=== PATIENT | male | born 1960 | race Caucasian/White ===

== ENCOUNTER 2023-07-27 19:48 | Inpatient (IN) | payer MEDICARE, SELFPAY ==
[2023-07-27] VITALS (9 sets, daily range): BP systolic 158–196; BP diastolic 80–111; BMI 30.4; BMI 28.9
[2023-07-27 17:48] LABS: % Basophils 0.5 % (0-2); % Eosinophils 3.7 % (0-6); % Immature Granulocytes 0.4 % (0-0.5); % Lymphocytes 16.1 % (20.5-51.1); % Monocytes 8.1 % (1.7-9.3); % Neutrophils 71.2 % (42.2-75.2); Absolute Basophils 0.1 10^3/uL (0-0.2); Absolute Eosinophils 0.5 10^3/uL (0-0.7); Absolute Immature Granulocytes 0.1 10^3/uL (0-0.05); Absolute Lymphocytes 2.2 10^3/uL (1.2-3.4); Absolute Monocytes 1.1 10^3/uL (0.1-0.6); Absolute Neutrophils 9.6 10^3/uL (1.4-6.5); Hematocrit 38.8 % (39.0-52.0); Mean Corp Hgb Conc. 33.5 g/dL (33.0-37.0); Mean Corpuscular Volume 83.6 fL (80.0-94.0); Mean Platelet Volume 10.1 fL (7.4-10.4); Nucleated Red Blood Cells % 0 % (-); Platelet Count 279 10^3/uL (130-400); Red Blood Cell Count 4.64 10^6/uL (4.70-6.10); Red Cell Dist. Width 14.3 % (11.5-14.5); White Blood Cell Count 13.5 10^3/uL (4.8-10.8)
--- NOTE | 2023-07-27 17:48 | ED.GENMED ---
History of Present Illness
<Maria M Mclaughlin PA-C - Last Filed: 08/01/23 21:45>
General
Chief Complaint: Breathing Problem
Source: patient
Exam Limitations: none
Time Seen by Provider: 07/27/23 17:51
Nursing documentation reviewed up to this point in time: agreed with
Travel History
Have you had any contact with someone who has COVID-19?: No
Do you have any symptoms of coronavirus? Fever > 100 degrees, chills, cough, shortness of breath, sore throat, loss of taste or smell, muscle aches, or headache?: No
History of Present Illness
History of Present Illness:
63 y/o M with h/o HTN
h/o provoked DVT remotely
says a few days of mild sob and maybe some wheezing
and then got much worse today, feels winded, trouble catching breath
injured his left anteiror lower leg last week and had a laceration and hematoma and now the calf is entirely swollen and bruised
he feels that the bruise is draining down the leg
he has some chest tightness and is a little pain with breathing but mostly just tight and sob, exertional dyspnea, fatigue
no fever, chills, cough, col dysmptoms
nonsmoker
no h/o copd
Past History
<Maria M Mclaughlin PA-C - Last Filed: 08/01/23 21:45>
Past History
ED Past Medical History: HTN
Social History
Tobacco: Non-smoker
Personal:
Review of Systems
<Maria M Mclaughlin PA-C - Last Filed: 08/01/23 21:45>
Review of Systems
Allergies reviewed?: Yes
All Other Systems: Not applicable
Phy Exam
<Maria M Mclaughlin PA-C - Last Filed: 08/01/23 21:45>
Physical Exam
Physical Exam:
GENERAL: Alert ,tachypneic
EYE: pupils equal and reactive
NECK: Supple
ENT: o/p clr, mmm.
CARDIAC: Regular rate and rhythm .
LUNGS: diminished crackles b/l bases, mild tachypnea on o2, no cough
ABDOMEN: Soft, without focal tenderness, no r/g, no cvat, normal bowel sounds
NEUROLOGICAL: Alert and oriented, no focal neuro deficits
SKIN: Warm and dry, skin intact.
MUSCULOSKELETAL: right lower edema ecchymosis, pitting left lower leg; anterior lower leg laceration closed 3 cm proximal anterior tibial region
calf slightly tender
swollen
PSYCH: Normal and appropriate interaction.
Scores
<Maria M Mclaughlin PA-C - Last Filed: 08/01/23 21:45>
Heart Failure Risk
Heart Failure Risk Score: Yes
History of Stroke or TIA: No
History of intubation for respiratory distress: No
Heart rate on ED arrival >/= 110: Yes
SaO2 <90% on arrival on room air: No
HR >/=110 during 3min walk test (or too ill to perform test): Yes
ECG has acute ischemic changes: No
Urea >/=12mmol/L (BUN 33.6mg/dL): No
Serum CO2>/=35mmol/L: No
Troponin I or T elevated to [place] Level (0.4mg/dL): No
NT-proBNP >/=5,000ng/L (5,000pg/ml): No
HF Risk Score: 2
Admission Status: MEDIUM RISK 9.2% Consider observation or discharge to home with homecare & f/u visit to PCP/It Network Administrator, or SNF for treatment
Course
<Maria M Mclaughlin PA-C - Last Filed: 08/01/23 21:45>
Orders/Labs/Results
Orders:
Orders
07/27/23 Breakfast
Cholesterol Lowering
At Your Request: Full Participation
Cholesterol Lowering: Sodium, 2 Gram
07/27/23 17:34
Electrocardiogram (*1) Urgent
Reason for Study: Shortness of Breath
07/27/23 17:35
EKG- Treatment ONCE
Complete Blood Count/With Diff Urgent
Comprehensive Metabolic Panel Urgent
NT-proBNP Urgent
Comment: ADD ON
Troponin I Urgent
07/27/23 17:43
Chest X-ray Portable [CR Chest Portable - 1 View] Stat
Comment:
Reason For Exam: sob
Reason Study Needs to be Portable: Unable to Transport
07/27/23 17:45
Add On- LAB Urgent
Tests Added?: BNP
07/27/23 17:54
Furosemide [Lasix] 40 mg IV NOW STA
07/27/23 17:56
COVID-19 Antigen Urgent
Source: Nasal Swab
Blood Culture Q30M
ROSE Source: Blood/Venous
Specimen Description:
Blood Culture Q30M
ROSE Source: Blood/Venous
Specimen Description:
Influenza A+B Rapid Molecular Urgent
ROSE Source: Nasal Swab
Specimen Description:
07/27/23 18:52
HydrALAZINE [Apresoline] 5 mg IV NOW STA
07/27/23 18:54
Add On- LAB Urgent
Tests Added?: procalcitonin
07/27/23 19:06
Procalcitonin Urgent
07/27/23 19:16
Admit/Transfer Patient As Directed
Co-Sign Provider:
Level of Care: Inpatient admission
Assign to:: Telemetry
Physician / Group: htay
Diagnosis: PNA vs acute HF / HFpEF, uncontrolled HTN
Reason for Telemetry: Subacute Heart Failure
Date to Stop Telemetry: 07/29/23
Time to Stop Telemetry: 11:00
Reason for Hospitalization: Acute dyspnea with progression
Asso. acute hypoxic RF
PNA vs acute HF / HFpEF, uncontrolled HTN
Expected length of stay greater than two midnights?: Yes
ELOS- Estimated Length of Stay in days: 3
I certify the patient meets the requirements for IP care: Yes
07/27/23 19:18
Code Status As Directed
Resuscitation Status: Full Code
07/27/23 19:19
Furosemide [Lasix] 40 mg IV NOW STA
07/27/23 19:27
US Periph Venous LOWER Ext LT Urgent
Comment:
Reason For Exam: swelling
07/27/23 20:42
CARDIOLOGY CONSULT Routine
Consulting Provider: Lasha Cai
Was physician already notified: Yes
Reason for consult: acute HF/ chr HFpEF vs PNA
HF DIETARY CONSULT Routine
HF EDUCATOR CONSULT Routine
Comment:
Activity As Directed
Activity Level: With Assistance
Intake/ Output As Directed
Frequency: Per unit guidelines
Patient Education As Directed
Type: CHF folder
Comment: give on admission. Document in Interdisciplinary Education record
Sleep Apnea Assessment by RN As Directed
Comment:
Physician Instructions:
Vital Signs As Directed
Frequency: Other
Additional Instructions:: Q12 or per unit guidelines if more frequent.
Weight As Directed
Frequency: Daily
Type of Scale: Standing Scale
Comment: Daily morning weight. If unable to stand, use balanced bed scale.
Weight As Directed
Frequency: Once
Type of Scale: Standing Scale
Comment: Upon Admission. If unable to stand, use balanced bed scale.
Pulse Ox/cont/shift [RESP] Routine
Quantity: 1
Special Instructions: Daily pulse oximetry at rest. If greater than 92% at rest also obtain pulse oximetry
while ambulating as tolerated.
DX Deep Vein Thrombosis Video Routine
07/27/23 21:33
Troponin I Q6H
Comment: at admission & every 6 hours x 2 (3 total), ECG to be done with each level
07/28/23 02:51
Cardiovascular Evaluation IN AM
Complete Blood Count/With Diff IN AM
Troponin I Q6H
Comment: at admission & every 6 hours x 2 (3 total), ECG to be done with each level
07/28/23 08:00
Amlodipine [Norvasc] 10 mg PO DAILY
Escitalopram Oxalate [Lexapro] 20 mg PO DAILY
Furosemide [Lasix] 40 mg IV DAILY
Multivitamin [Theragran] 1 tablet PO DAILY
07/28/23 08:51
Troponin I Q6H
Comment: at admission & every 6 hours x 2 (3 total), ECG to be done with each level
07/28/23 18:00
Enoxaparin Sodium [Lovenox] 40 mg SC QPM
07/29/23 05:38
Basic Metabolic Panel IN AM
07/29/23 11:00
DC Protocol for Telemetry ONCE
07/30/23 05:25
Basic Metabolic Panel IN AM
Abnormal Lab Results
07/27/23
17:35
WBC 13.5 H 10^3/uL
(4.8-10.8)
RBC 4.64 L 10^6/uL
(4.70-6.10)
Hct 38.8 L %
(39.0-52.0)
Abs Immat Gran (auto) 0.1 H 10^3/uL
(0-0.05)
Absolute Neuts (auto) 9.6 H 10^3/uL
(1.4-6.5)
Absolute Monos (auto) 1.1 H 10^3/uL
(0.1-0.6)
Lymphocytes % 16.1 L %
(20.5-51.1)
07/27/23 17:35
07/27/23 17:35
Vital Signs
Initial and Last Documented VS:
Initial Vital Signs
Temp Pulse Resp BP Pulse Ox
98.2 F 83 31 178/106 88
07/27/23 17:34 07/27/23 17:34 07/27/23 17:34 07/27/23 17:34 07/27/23 17:34
Last Documented Vital Signs
Temp Pulse Resp BP Pulse Ox
98.2 F 75 16 141/90 98
07/31/23 15:00 07/31/23 15:00 07/31/23 15:00 07/31/23 15:00 07/31/23 15:00
<Saqib Maier MD - Last Filed: 07/27/23 18:51>
Orders/Labs/Results
Orders:
Orders
07/27/23 Breakfast
Cholesterol Lowering
At Your Request: Full Participation
Cholesterol Lowering: Sodium, 2 Gram
07/27/23 17:34
Electrocardiogram (*1) Urgent
Reason for Study: Shortness of Breath
07/27/23 17:35
EKG- Treatment ONCE
Complete Blood Count/With Diff Urgent
Comprehensive Metabolic Panel Urgent
NT-proBNP Urgent
Comment: ADD ON
Troponin I Urgent
07/27/23 17:43
Chest X-ray Portable [CR Chest Portable - 1 View] Stat
Comment:
Reason For Exam: sob
Reason Study Needs to be Portable: Unable to Transport
07/27/23 17:45
Add On- LAB Urgent
Tests Added?: BNP
07/27/23 17:54
Furosemide [Lasix] 40 mg IV NOW STA
07/27/23 17:56
COVID-19 Antigen Urgent
Source: Nasal Swab
Blood Culture Q30M
ROSE Source: Blood/Venous
Specimen Description:
Blood Culture Q30M
ROSE Source: Blood/Venous
Specimen Description:
Influenza A+B Rapid Molecular Urgent
ROSE Source: Nasal Swab
Specimen Description:
07/27/23 18:52
HydrALAZINE [Apresoline] 5 mg IV NOW STA
07/27/23 18:54
Add On- LAB Urgent
Tests Added?: procalcitonin
07/27/23 19:06
Procalcitonin Urgent
07/27/23 19:16
Admit/Transfer Patient As Directed
Co-Sign Provider:
Level of Care: Inpatient admission
Assign to:: Telemetry
Physician / Group: htay
Diagnosis: PNA vs acute HF / HFpEF, uncontrolled HTN
Reason for Telemetry: Subacute Heart Failure
Date to Stop Telemetry: 07/29/23
Time to Stop Telemetry: 11:00
Reason for Hospitalization: Acute dyspnea with progression
Asso. acute hypoxic RF
PNA vs acute HF / HFpEF, uncontrolled HTN
Expected length of stay greater than two midnights?: Yes
ELOS- Estimated Length of Stay in days: 3
I certify the patient meets the requirements for IP care: Yes
07/27/23 19:18
Code Status As Directed
Resuscitation Status: Full Code
07/27/23 19:19
Furosemide [Lasix] 40 mg IV NOW STA
07/27/23 19:27
US Periph Venous LOWER Ext LT Urgent
Comment:
Reason For Exam: swelling
07/27/23 20:42
CARDIOLOGY CONSULT Routine
Consulting Provider: Lasha Cai
Was physician already notified: Yes
Reason for consult: acute HF/ chr HFpEF vs PNA
HF DIETARY CONSULT Routine
HF EDUCATOR CONSULT Routine
Comment:
Activity As Directed
Activity Level: With Assistance
Intake/ Output As Directed
Frequency: Per unit guidelines
Patient Education As Directed
Type: CHF folder
Comment: give on admission. Document in Interdisciplinary Education record
Sleep Apnea Assessment by RN As Directed
Comment:
Physician Instructions:
Vital Signs As Directed
Frequency: Other
Additional Instructions:: Q12 or per unit guidelines if more frequent.
Weight As Directed
Frequency: Daily
Type of Scale: Standing Scale
Comment: Daily morning weight. If unable to stand, use balanced bed scale.
Weight As Directed
Frequency: Once
Type of Scale: Standing Scale
Comment: Upon Admission. If unable to stand, use balanced bed scale.
Pulse Ox/cont/shift [RESP] Routine
Quantity: 1
Special Instructions: Daily pulse oximetry at rest. If greater than 92% at rest also obtain pulse oximetry
while ambulating as tolerated.
DX Deep Vein Thrombosis Video Routine
07/27/23 21:33
Troponin I Q6H
Comment: at admission & every 6 hours x 2 (3 total), ECG to be done with each level
07/28/23 02:51
Cardiovascular Evaluation IN AM
Complete Blood Count/With Diff IN AM
Troponin I Q6H
Comment: at admission & every 6 hours x 2 (3 total), ECG to be done with each level
07/28/23 08:00
Amlodipine [Norvasc] 10 mg PO DAILY
Escitalopram Oxalate [Lexapro] 20 mg PO DAILY
Furosemide [Lasix] 40 mg IV DAILY
Multivitamin [Theragran] 1 tablet PO DAILY
07/28/23 08:51
Troponin I Q6H
Comment: at admission & every 6 hours x 2 (3 total), ECG to be done with each level
07/28/23 18:00
Enoxaparin Sodium [Lovenox] 40 mg SC QPM
07/29/23 05:38
Basic Metabolic Panel IN AM
07/29/23 11:00
DC Protocol for Telemetry ONCE
07/30/23 05:25
Basic Metabolic Panel IN AM
Abnormal Lab Results
07/27/23
17:35
WBC 13.5 H 10^3/uL
(4.8-10.8)
RBC 4.64 L 10^6/uL
(4.70-6.10)
Hct 38.8 L %
(39.0-52.0)
Abs Immat Gran (auto) 0.1 H 10^3/uL
(0-0.05)
Absolute Neuts (auto) 9.6 H 10^3/uL
(1.4-6.5)
Absolute Monos (auto) 1.1 H 10^3/uL
(0.1-0.6)
Lymphocytes % 16.1 L %
(20.5-51.1)
07/27/23 17:35
07/27/23 17:35
Vital Signs
Initial and Last Documented VS:
Initial Vital Signs
Temp Pulse Resp BP Pulse Ox
98.2 F 83 31 178/106 88
07/27/23 17:34 07/27/23 17:34 07/27/23 17:34 07/27/23 17:34 07/27/23 17:34
Last Documented Vital Signs
Temp Pulse Resp BP Pulse Ox
98.2 F 75 16 141/90 98
07/31/23 15:00 07/31/23 15:00 07/31/23 15:00 07/31/23 15:00 07/31/23 15:00
<Maria M Mclaughlin PA-C - Last Filed: 08/01/23 21:45>
MDM/Problems Addressed
Differential Diagnosis Includes:
puilm edema ,afib, PE, pna
MDM/Problems Addressed:
63 y/o M
seen briefly by me before shift chnage
care by dr. maier
sob mild 2 days ago but abruptly worse today
no fever/cough/chills
leg swollen after injury a few days ago, hematoma an dlaceration
no h/o dvt pe
presents in new afib with RVR
tachpneic
rales and wheezing
cxr indep reviewed appears like it coudl be pulm edea vs. multifocal pna
signed out to dr. maier
<Maria M Mclaughlin PA-C - Last Filed: 08/01/23 21:45>
*Critical Care Note
Total Time (30-74mins, 75-104mins- exclusive of procedures): Not Applicable
<Saqib Maier MD - Last Filed: 07/27/23 18:51>
Update Note
Update Note:
63-year-old male shortness of breath x 2 days. Some slight dry cough. No fever no pleuritic pain no chest pain. No history of same. Moderately short of breath. Hypoxic on arrival.
Patient mildly tachypneic. Rales in both bases. Warm and dry. Heart regular rate and rhythm. Area of ecchymosis and abrasion to his left anterior leg with some swelling of the left lower leg.
Impression is hypoxic respiratory failure. Pneumonia bilateral versus CHF. I was more suspicious of CHF on the x-ray. Radiology was uncertain. Significant diastolic hypertension. Workup in progress. Clearly warrants admission.
1845... Still not totally clear whether this is heart failure or pneumonia. I personally lean towards heart failure. Diastolic blood pressure of 110. Will hold on antibiotics after discussion with hospitalist. Will give a dose of hydralazine for
the blood pressure.
ED Attending Note
<Maria M Mclaughlin PA-C - Last Filed: 08/01/23 21:45>
-
Portions of this chart may have been created with voice recognition software.� Occasional wrong word or��sound alike� substitutions may have occurred due to the inherent limitations of voice recognition software.
Discharge Plan
Departure
Patient Disposition: Admit
Date of Disposition: 07/27/23
Time of Disposition: 18:53
Admit to: Telemetry
Presentation/result/management discussed w/ accepting MD/DO: Hospitalist
Patient with high blood pressure during this ER visit?: Yes
Condition: Fair
Discharge Problem:
Pulmonary edema
Interventions
Interventions:
*Risk Screen - Suicide Last Done: 07/27/23 17:34
*General Assessment Last Done: 07/27/23 17:34
*Neglect/Abuse Screening Last Done: 07/27/23 17:34
*ED COVID-19 Vaccine History Last Done: 07/27/23 17:34
*Nursing Disposition Last Done: 07/27/23 20:39
ED- Cardiac Assessment Last Done: 07/27/23 17:48
ED- Pulmonary Assessment Last Done: 07/27/23 17:48
Discharge Date and Time
Discharge Date/Time: 07/27/23 20:39
[2023-07-27] MEDS: LASIX 40 MG IV (17:57)
[2023-07-27 18:02] LABS: ALT (SGPT) 25 U/L (0-50); AST (SGOT) 23 U/L (17-59); Albumin 4.2 g/dl (3.5-5.0); Alkaline Phosphatase 77 U/L (38-126); Blood Urea Nitrogen 16 mg/dl (9-20); Calcium 9.4 mg/dl (8.4-10.2); Carbon Dioxide 23 mmol/L (22-30); Chloride 107 mmol/L (98-107); Estimated Creatinine Clearance 125 ml/min; Glucose 93 mg/dl (70-99); Potassium 3.9 mmol/L (3.5-5.1); Sodium 141 mmol/L (135-145); Total Bilirubin 1.1 mg/dl (0.2-1.3); Total Protein 6.9 g/dl (6.3-8.2); eGFR > 60.00
[2023-07-27 18:13] LABS: Troponin I < 0.012 ng/ml
[2023-07-27 18:36] LABS: COVID-19 Antigen Negative (Negative)
[2023-07-27 18:39] LABS: NT-proBNP 1150 pg/ml
[2023-07-27] MEDS: APRESOLINE 5 MG IV (18:57)
--- NOTE | 2023-07-27 19:09 | HPS.HSE ---
Addendum entered and electronically signed by Ayaan Layton MD 07/27/23 21:15:
LLEx US:
No evidence of deep venous thrombosis of the left lower extremity.
Addendum entered and electronically signed by Ayaan Layton MD 07/27/23 19:52:
Laboratory Tests
07/27/23 07/27/23
17:56 19:06
Procalcitonin < 0.05
SARS-CoV-2 Antigen Negative
- Will DC'd IV CFTX and PO Z max
Original Note:
Family Physician
-
Family Physician: Ramón Jeff
Chief Complaint
-
SoB
History of Present Illness
63M Nonsmoker from Home HX Essential HTN on Amlodipine & Valsartan seen at ER for evaluation of SoB. POx 88 % on RA on arrival
SOB;
Somewhat acute onset for last 2days and progressive to SoB with exertion
Reports he noted occasion al wheezing and slight dry cough
No fever, chills, cols symptoms
No recent exposure to person with active covid persons
NEG Covid, NEG Flu A & B at ER
No prior HX COPD , No prior HX CHf
Recebt ECHO with CBC card 3 months ago but not in [facility]
Poorly controlled HTN upon arrival
Remote ECHO in 2012 shoes diastolic dysfunction
LLEx swelling
HX provoked DVT of Lt leg in 2018 after the surgery- treated with eliquis for 3 months
Since then intermittent LLE edema
Medical History
Past Medical History
Past Medical History: Reports HTN and Psychiatric (depression )
Past Surgical History: Reports None
Social History
Tobacco: Non-smoker
Alcohol: None
Drug: None
Personal:
Family History
Family History: Not pertinent
Allergies / Home Medications
Allergies reflects when Allergies were last updated in [facility], [place].
Home Medications with original date entered in [facility], [place]
Allergy/Medication List:
Allergies
Allergy/AdvReac Type Severity Reaction Status Date / Time
No Known Allergies Allergy Unverified 03/18/18 10:02
Home Medications
amlodipine 10 mg tablet (Norvasc) 10 mg PO DAILY 07/27/23
escitalopram oxalate 20 mg tablet (Lexapro) 20 mg PO DAILY 07/27/23
naproxen sodium 220 mg tablet (Aleve) 660 mg PO BID 07/27/23
therapeutic multivitamin 1 tab PO DAILY 07/27/23
valsartan 320 mg tablet 320 mg PO DAILY 07/27/23
Review of Systems
-
Constitutional: Reports No Symptoms
EENT: Reports No Symptoms
Respiratory: Reports See HPI and Trouble Breathing
Cardiac: Reports No Symptoms
Abdomen/GI: Reports No Symptoms
: Reports No Symptoms
Musculoskeletal: Reports No Symptoms
Skin: Reports No Symptoms
Neurological: Reports No Symptoms
Endocrine: Reports No Symptoms
Hematologic/Lymphatic: Reports No Symptoms
Psych: Reports No Symptoms
Physical Exam
Vital Signs
Vital Signs
Temp Pulse Resp BP Pulse Ox
98.2 F 77 21 188/111 95
07/27/23 17:34 07/27/23 18:00 07/27/23 18:00 07/27/23 18:57 07/27/23 17:45
Physical Exam
General: Well Nourished, No Apparent Distress and Comfortable
HEENT: NormoCephalic, Anicteric and Moist mucous membranes
Respiratory: Other (crackles b/l bases, mild tachypnea on O2 )
Cardiac: S1/S2 and Regular Rhythm; No Tachycardia or Murmur
GI: Soft, Non Tender, Non Distended and Normal Bowel Sounds
Rectal: Deferred by Provider
Musculoskeletal: No Cyanosis and No Edema
Skin: Warm and Dry
Neuro: AO x 3 and No Motor Deficits
Psych: Calm
Laboratory Results
-
07/27/23 17:35
07/27/23 17:35
Laboratory Results
Total Bilirubin 1.1 mg/dl (0.2-1.3) 07/27/23 17:35
AST 23 U/L (17-59) 07/27/23 17:35
ALT 25 U/L (0-50) 07/27/23 17:35
Alkaline Phosphatase 77 U/L (38-126) 07/27/23 17:35
Troponin I < 0.012 ng/ml 07/27/23 17:35
Data Reviewed
-
Diagnostic Radiology: Report Reviewed by me
Medical Tests (Nuc Med, Echo, EKG etc): Report Reviewed by me
Lab Data: Labs Reviewed by me
Impression/Plan
-
Reviewed VS: Afebrile HR 77 BP 190/108 RR 30--> 20 POx 88 --> 95
Data
WCC 13.5
nl CMP
NEG TPNI
pro BNP 1150
NEG Covid NEG Flu A & B
BCx sent
Pending PCT
CXR:
Bibasilar opacities, predominantly basilar at least in part could be chronic, unfortunately no prior chest radiographs in this facility.
Bibasilar pneumonia superimposed upon some chronic interstitial changes vs. some interstitial edema/pneumonitis superimposed upon some chronic fibrotic changes cannot be excluded.
2012 ECHO
LVEF 55
mild diastolic dysfunction
Mild MR
Trace TR
No PHT
Last hospitalist admission: XXX
ASSESSMENT & PLAN
Acute dyspnea with progression
Asso. acute hypoxic RF need O2 support
Uncontrol diastolic HTN s/p IV Lasix 40 x1 at ER
Abn CXR: Bibasilar PNA superimposed upon some chronic interstitial changes vs. some interstitial edema/pneumonitis
Clinical Diff Dx; Acute HF/ decompensated HFpEF due to Uncontrol diastolic HTN vs. Bibasilar PNA
- Elevated proBNP but mild
- check PCT till then - Empiric IC CFTX and PO Azithromycin
- Control HTN: start with IV Hydralazine, if not response IV Lasix plus NTG gtt
- IV Lasix 40mg daily- f/u Wt, IOs and BMP daily
- f/u BCx
- Obtain ECHO from CBC card done 3 months ago per patient
-CBC card consult
Uncontrolled HTN
HX essential HTN
nl RFts
- as above
- cont amlodipine and valsartan
Chr intermittent LLEx swelling
HX provoked DVT of Lt leg in 2018 after the surgery- treated with eliquis for 3 months
Since then intermittent LLE edema
- Lt Humberto US to be thorough
Stable depression on Escitalopram
DVT Px: LMWH
Code: Full code
IP TLM
[2023-07-27 19:46] LABS: Procalcitonin < 0.05 ng/ml (0.0-0.25)
--- NOTE | 2023-07-27 21:00 | PTCARENOTE ---
Received pt from ED via stretcher. Pt ambulated to bed independently. AAOx3. Blood pressure elevated, will recheck. flow floor attendant placed. Assessed and oriented to room. Pt verbalized understanding of call dangelo. Call dangelo within close reach. Will
continue to monitor.
[2023-07-27 22:06] LABS: Troponin I < 0.012 ng/ml
--- NOTE | 2023-07-27 23:55 | PTCARENOTE ---
Blood pressure elevated. LEGAL STENOGRAPHER made aware, new order provided, see MAR. Will recheck blood pressure.
[2023-07-28] VITALS (8 sets, daily range): BP systolic 168–190; BP diastolic 94–118; BMI 28.9
[2023-07-28] MEDS: APRESOLINE 5 MG IV (00:06)
[2023-07-28] MEDS: FLUSH (NSS) 2 FLUSH IV ×3 (00:07→15:59)
--- NOTE | 2023-07-28 03:00 | PTCARENOTE ---
Blood pressure continues to be elevated. Pt asymptomatic. ASSEMBLER G[employer]AME made aware, no new order provided.
[2023-07-28 03:23] LABS: % Basophils 0.6 % (0-2); % Eosinophils 1.1 % (0-6); % Immature Granulocytes 0.3 % (0-0.5); % Lymphocytes 12.6 % (20.5-51.1); % Monocytes 7.9 % (1.7-9.3); % Neutrophils 77.5 % (42.2-75.2); Absolute Basophils 0.1 10^3/uL (0-0.2); Absolute Eosinophils 0.1 10^3/uL (0-0.7); Absolute Lymphocytes 1.4 10^3/uL (1.2-3.4); Absolute Monocytes 0.9 10^3/uL (0.1-0.6); Absolute Neutrophils 8.9 10^3/uL (1.4-6.5); Hematocrit 36.6 % (39.0-52.0); Hemoglobin 12.7 g/dL (13.0-18.0); Mean Corp Hgb Conc. 34.7 g/dL (33.0-37.0); Mean Corpuscular Hgb 28.1 pg (27.0-31.0); Mean Platelet Volume 10.6 fL (7.4-10.4); Nucleated Red Blood Cells % 0 % (-); Platelet Count 299 10^3/uL (130-400); Red Blood Cell Count 4.52 10^6/uL (4.70-6.10); Red Cell Dist. Width 14.2 % (11.5-14.5); White Blood Cell Count 11.4 10^3/uL (4.8-10.8)
[2023-07-28 03:37] LABS: ALT (SGPT) 25 U/L (0-50); AST (SGOT) 21 U/L (17-59); Albumin 3.9 g/dl (3.5-5.0); Alkaline Phosphatase 75 U/L (38-126); Blood Urea Nitrogen 15 mg/dl (9-20); Calcium 9.2 mg/dl (8.4-10.2); Carbon Dioxide 24 mmol/L (22-30); Chloride 108 mmol/L (98-107); Direct Bilirubin 0.3 mg/dl (0.0-0.4); Estimated Creatinine Clearance 111 ml/min; Glucose 91 mg/dl (70-99); HDL Cholesterol 44 mg/dl; LDL Cholesterol, Calculated 89 mg/dl; Potassium 3.5 mmol/L (3.5-5.1); Sodium 140 mmol/L (135-145); Total Bilirubin 1.5 mg/dl (0.2-1.3); Total Cholesterol 150 mg/dl (50-199); Total Protein 6.5 g/dl (6.3-8.2); Triglyceride 87 mg/dl (10-149); Very Low Density Lipoprotein 17 mg/dl (0-30); eGFR > 60.00
[2023-07-28 03:47] LABS: Troponin I < 0.012 ng/ml
[2023-07-28] MEDS: LASIX 40 MG IV ×2 (08:18→15:58)
[2023-07-28] MEDS: THERAGRAN 1 TABLET PO (08:19)
[2023-07-28] MEDS: LEXAPRO 20 MG PO (08:19)
[2023-07-28] MEDS: NORVASC 10 MG PO (08:19)
[2023-07-28 09:35] LABS: Troponin I < 0.012 ng/ml
[2023-07-28] MEDS: DIOVAN 320 MG PO (10:49)
--- NOTE | 2023-07-28 11:16 | W.PN.CD ---
Today's Communication / Plan
-
Consult dictated
BID Lasix for now
Repeat BNP and CXR tomorrow
Add Aldactone now for poorly controlled HTN (will also help if HF confirmed as Dx)
Add SGLT2-I tomorrow if we feel we have confirmed heart failure as Dx
Can move Valsartan to Entresto tomorrow if we feel we have confirmed heart failure as a Dx
If we still have questions of Dx after diuresis I would suggest pulmonary consult and see if pulmonary feels workup with PFTs, and CT chest with thin cuts to look for interstitial lung disease is indicated
Will need BMP in 2 and 4 weeks for new Aldactone
Impression / Plan
-
Progressive dyspnea over 3-4 days, perhaps some orthopnea night prior to ER presentation CXR abnormal but raises possibility of interstitial lung disease. In ER and upon EMS arrive HTN was markedly elevated
- Will treat for acute heart failure and then consider need for pulmonary evaluation
Suspected heart failure
- His is at risk: poorly controlled HTN, underlying CAD, overweight
- Echo
- See response to diuresis
- Adjust meds
Very poorly controlled HTN
- Check betito/renins
- Add Aldactone
- May need more med adjustment
- Reviewed need to monitor BP every two weeks AM/PM to aid his PCP and his card. in BP management
CAD, cath several years ago 'small vessel 90%' => med rx
- Sees Dr. Braden of [facility]
Mixed hyperlipidemia
- Stopped his statin
- Knows he needs to go back on statin
Extensive spine disease, prior surgery (JACOB/Mikalya)
Left leg postphlebitic syndrome
- Prior left leg provoked DVT with chronic LLE edema
- U/s here no current DVT
Disability since 2019 for back disease
9 yrs ago this weekend here at [facility] of met breast [place]
Subjective:
Says he felt better prior to Lasix!!
Physical Exam
Vital Signs/Labs
Vital Signs
Temp Pulse Resp BP Pulse Ox
97.5 F 81 18 185/118 95
07/28/23 07:00 07/28/23 10:06 07/28/23 07:00 07/28/23 10:06 07/28/23 07:00
07/27/23 07/28/23 07/29/23
06:59 06:59 06:59
Actual Weight 102.058 kg
07/28/23 02:51
07/28/23 02:51
Triglycerides 87 mg/dl (10-149) 07/28/23 02:51
LDL Cholesterol, Calc 89 mg/dl 07/28/23 02:51
VLDL Cholesterol, Calc 17 mg/dl (0-30) 07/28/23 02:51
HDL Cholesterol 44 mg/dl 07/28/23 02:51
07/27/23
17:35
Pig-C-[id number] Pept 1150
LAB Results
07/27/23 07/27/23 07/28/23
17:35 21:33 02:51
Troponin I < 0.012 < 0.012 < 0.012
07/28/23
08:51
Troponin I < 0.012
Data Reviewed
-
Date of Service: July 28, 2023
--- NOTE | 2023-07-28 11:52 | W.PN.HOSP.TC ---
Today's Communication/Plan
-
See plan above
Assessment / Plan
Assessment / Plan
Acute shortness of breath associated wheezing and dry cough-patient with bilateral lower extremity swelling. Mildly elevated BNP noted. Uncontrolled hypertension noted on admission as well. Chest x-ray suggestive of bibasilar opacities with
interstitial edema/bronchitis. No prior chest x-rays to compare for the chronicity. With rapid improvement with the breathing without any other treatments other than Lasix clinical concern is for heart failure. I would continue with Lasix. Get
an echocardiogram tomorrow.
Repeat chest x-ray in a.m.
No reactive airway disease currently-hold steroids or nebulizers.
Doubt clinically pneumonia-no fevers. Procalcitonin was normal. Patient is already improved without treatment with antibiotics. White count was already improving which could be reactive.
Lxmjyyzbyixu-wzksvxefmgkl-kanzbcqb with his home medication and Lasix. Hold hydrochlorothiazide.
Full code
DW cards about the plan
Total time spent on today's encounter was 52 minutes which included time spent in counseling the patient/family regarding diagnosis and treatment plan as listed above, goals of care, and symptom management. Case was discussed with nursing staff,
specialists, . All labs and imaging personally reviewed by me. Remainder the time spent in detailed review of previous records, lab data, imaging, and other medical provider documentation.
Anticipated Discharge: 24 - 48 hours
Subjective/Interval History
-
Date of Service: July 28, 2023
Breathing comfortable now. No chest pain.
Issue with seasonal asthma in the past. Does not normally require any treatments.
He was working out this week and and pollen has been heavy.
On /Friday he started to hear wheezing. Then he started get short of breath on Friday evening.
On Friday he was very short of breath and could not breathe so came into the ER.
En route to hospital he had breathing treatment which she thinks might not have helped much. He got Lasix in the ED. Is feeling much better today. No wheezing.
Along with the wheezing and shortness of breath he had a dry cough.
Not much of eye symptoms of rhinitis with pollen.
Denies any history of chronic lung disease. Non-smoker.
States that his blood pressure is usually well-controlled ;per pt may be his episode of shortness of breath might of shot it up. No prior history of heart failure.
Objective Data
-
Labs:
Laboratory Results
07/28/23
02:51
WBC 11.4 H
Hgb 12.7 L
Hct 36.6 L
Plt Count 299
Sodium 140
Potassium 3.5
Chloride 108 H
Carbon Dioxide 24
BUN 15
Creatinine 0.8
Glucose 91
Calcium 9.2
Total Bilirubin 1.5 H
AST 21
ALT 25
Alkaline Phosphatase 75
Vital Signs:
Vital Signs
Temp Pulse Resp BP Pulse Ox
97.5 F 81 18 185/118 95
07/28/23 07:00 07/28/23 10:06 07/28/23 07:00 07/28/23 10:06 07/28/23 07:00
I&O
07/27/23 07/28/23 07/29/23
06:59 06:59 06:59
Intake Total 240 / 240
Output Total 650 / 650
Balance -410 / -410
Review of Systems
-
Constitutional: Denies Fever
EENT: Denies Sore Throat
Abdomen/GI: Denies Abdominal Pain, Nausea or Vomiting
Neuro: Denies Dizzy
Physical Exam
-
General: No Apparent Distress
HEENT: Moist Mucous Membranes
Respiratory: Negative Wheezes or Crackles
Cardiac: Regular Rhythm and S1/S2; Negative Tachycardic
GI: Soft
Musculoskeletal: Edema, Right Lower Extrem and Edema, Left Lower Extrem (More so than right. He has a traumatic injury to the left leg. Ultrasound was negative for any DVT. No evidence of cellulitis focally.)
Neuro: AO x 3
Psych: Calm
Data Reviewed
-
Labs: Labs Reviewed by me
[2023-07-28] MEDS: ALDACTONE 25 MG PO (11:59)
[2023-07-28] MEDS: LOVENOX 40 MG SC (18:04)
--- NOTE | 2023-07-28 20:21 | PTCARENOTE ---
Blood pressure and temperature elevated. Pt asymptomatic. Pt complained of increased pain throughout LLE below knee with increased redness and warmth. Positive pedal pulse in L foot. No complaints of anxiety or urinary symptoms. [employer] made aware, new
order provided, see MAR. Will reassess temperature and BP.
[2023-07-28] MEDS: TYLENOL 1000 MG PO (20:24)
[2023-07-29] VITALS (8 sets, daily range): BP systolic 159–186; BP diastolic 99–113; BMI 27.9
[2023-07-29 00:32] LABS: Hepatitis C Antibody Negative (Negative)
[2023-07-29 06:00] LABS: Hematocrit 38.9 % (39.0-52.0); Hemoglobin 13.7 g/dL (13.0-18.0); Mean Corp Hgb Conc. 35.2 g/dL (33.0-37.0); Mean Corpuscular Hgb 28.8 pg (27.0-31.0); Mean Corpuscular Volume 81.9 fL (80.0-94.0); Mean Platelet Volume 10.9 fL (7.4-10.4); Platelet Count 301 10^3/uL (130-400); Red Blood Cell Count 4.75 10^6/uL (4.70-6.10); Red Cell Dist. Width 14.1 % (11.5-14.5); White Blood Cell Count 9.6 10^3/uL (4.8-10.8)
[2023-07-29 06:23] LABS: Blood Urea Nitrogen 21 mg/dl (9-20); Calcium 9.2 mg/dl (8.4-10.2); Carbon Dioxide 24 mmol/L (22-30); Chloride 107 mmol/L (98-107); Estimated Creatinine Clearance 99 ml/min; Glucose 90 mg/dl (70-99); Potassium 3.8 mmol/L (3.5-5.1); Sodium 140 mmol/L (135-145); eGFR > 60.00
[2023-07-29 06:24] LABS: NT-proBNP 602 pg/ml
[2023-07-29] MEDS: NORVASC 10 MG PO (08:40)
[2023-07-29] MEDS: THERAGRAN 1 TABLET PO (08:40)
[2023-07-29] MEDS: ALDACTONE 25 MG PO (08:40)
[2023-07-29] MEDS: LASIX 40 MG IV ×2 (08:41→17:40)
[2023-07-29] MEDS: LEXAPRO 20 MG PO (08:41)
--- NOTE | 2023-07-29 08:46 | W.PN.CD ---
Today's Communication / Plan
-
change valsartan to entresto
echo
continue IV lasix
Impression / Plan
-
Progressive dyspnea over 3-4 days, perhaps some orthopnea night prior to ER presentation CXR abnormal but raises possibility of interstitial lung disease and/or HF.. In ER and upon EMS arrive HTN was markedly elevated.
- defer pulmonary evaluation to hospitalist
- see below for HF
Acute HFPEF
- seems to be responding well to IV lasix: continue, with close monitoring of labs and tele
-aldactone added 07/27
-change valsartan to entresto
-eventual SGLT2i
-echo
Very poorly controlled HTN
-reports side effects to metoprolol and clonidine previously
- Check betito/renins
- Added Aldactone 07/27
- change valsartan to entresto
-cont home amlodipine 10mg daily
-given CAD, we may try coreg tomorrow if BP still elevated
CAD, cath several years ago 'small vessel 90%' => med rx
-ASA 81mg daily
- Sees Dr. Braden of [facility]
Mixed hyperlipidemia
- Stopped his statin
- Knows he needs to go back on statin: to be addressed as outpatient
Extensive spine disease, prior surgery ([facility])
Left leg postphlebitic syndrome
- Prior left leg provoked DVT with chronic LLE edema
- u/s here: no current DVT
Disability since 2019 for back disease
9 yrs ago this weekend here at [facility] [place]
Subjective:
SOB is improving.
Physical Exam
Vital Signs/Labs
Vital Signs
Temp Pulse Resp BP Pulse Ox
98.8 F 77 20 160/113 95
07/29/23 03:00 07/29/23 03:00 07/29/23 03:00 07/29/23 03:00 07/29/23 03:00
07/28/23 07/29/23 07/30/23
06:59 06:59 06:59
Actual Weight 102.058 kg 98.43 kg
07/29/23 05:38
07/29/23 05:38
Triglycerides 87 mg/dl (10-149) 07/28/23 02:51
LDL Cholesterol, Calc 89 mg/dl 07/28/23 02:51
VLDL Cholesterol, Calc 17 mg/dl (0-30) 07/28/23 02:51
HDL Cholesterol 44 mg/dl 07/28/23 02:51
07/27/23 07/29/23
17:35 05:38
Nop-O-Iekbwuewykt Pept 1150 602
LAB Results
07/27/23 07/27/23 07/28/23
17:35 21:33 02:51
Troponin I < 0.012 < 0.012 < 0.012
07/28/23
08:51
Troponin I < 0.012
Physical Exam
Constitutional: No acute distress and Comfortable
EENT: Moist mucous membranes
Cardiovascular: Rhythm & rate is regular, Pedal edema is absent, JVD pressure is normal and Systolic murmur absent
Respiratory: Respiratory effort normal, Lungs clear to auscul. and Wheeze Absent
GI: Soft, Distention absent and Flat
Neuro/Psych: AO x 3
Data Reviewed
-
Date of Service: July 29, 2023
EKG: Other (Tele: SR 80s)
Labs: Labs Reviewed by me
[2023-07-29] MEDS: DIOVAN PO (08:50)
[2023-07-29] MEDS: ENTRESTO 49 MG/51 MG 1 TAB PO ×2 (09:52→20:18)
[2023-07-29] MEDS: LOW STRENGTH ASPIRIN 81 MG PO (09:52)
--- NOTE | 2023-07-29 11:15 | CM ---
Met with pt at bedside
Pt lives with his son in a 2 story condo
Independent, driving, home management. On disability
DME - rolling walker, currently not using
SNF/HH - denies past hx
Has ride at discharge
PCP - Dr Kimber Jeff
Pharm - [facility]
CM will follow for d/c needs
Plan - anticipate home no needs
--- NOTE | 2023-07-29 11:45 | W.PN.HOSP.TC ---
Today's Communication/Plan
-
Continue with Lasix
Check an echocardiogram and chest x-ray.
Continue to optimize blood pressure medication
Assessment / Plan
Assessment / Plan
Acute shortness of breath associated wheezing and dry cough-patient with bilateral lower extremity swelling. Mildly elevated BNP noted. Uncontrolled hypertension noted on admission as well. Chest x-ray suggestive of bibasilar opacities with
interstitial edema/bronchitis. No prior chest x-rays to compare for the chronicity. With rapid improvement with the breathing without any other treatments other than Lasix clinical concern is for heart failure. continue with Lasix. ECHO today.
Repeat chest x-ray today.
No reactive airway disease -hold steroids or nebulizers.
Doubt clinically pneumonia-no fevers. Procalcitonin was normal. Patient is already improved without treatment with antibiotics. White count normalized with abx -suspect reactive.
Owyjxbsaefwp-vokwhevawwnw-sprrfdkx with his home medication and Lasix. Hold hydrochlorothiazide.Med changes by cards noted
Full code
Anticipated Discharge: Within 24 hours
Subjective/Interval History
-
Date of Service: July 29, 2023
Improved breathing. No chest pain.
No fever or chills. Does not complain much of cough today.
Been on blood pressure medication since 1999. He has had issues with elevation up and down with BP prior to coming into the hospital.
Objective Data
-
Labs:
Laboratory Results
07/29/23
05:38
WBC 9.6
Hgb 13.7
Hct 38.9 L
Plt Count 301
Sodium 140
Potassium 3.8
Chloride 107
Carbon Dioxide 24
BUN 21 H
Creatinine 0.9
Glucose 90
Calcium 9.2
Vital Signs:
Vital Signs
Temp Pulse Resp BP Pulse Ox
97.8 F 70 17 175/106 97
07/29/23 08:00 07/29/23 08:00 07/29/23 08:00 07/29/23 08:00 07/29/23 08:00
I&O
07/28/23 07/29/23 07/30/23
06:59 06:59 06:59
Intake Total 240 / 240 1380 / 1380
Output Total 650 / 650
Balance -410 / -410 1380 / 1380
Review of Systems
-
Constitutional: Denies Fever
EENT: Denies Sore Throat
Cardiac: Denies Palpitations
Abdomen/GI: Denies Nausea or Vomiting
Neuro: Denies Dizzy
Physical Exam
-
General: No Apparent Distress
HEENT: Moist Mucous Membranes
Respiratory: Clear to Auscultation; Negative Wheezes or Crackles
Cardiac: Regular Rhythm and S1/S2
Neuro: AO x 3
Data Reviewed
-
Labs: Labs Reviewed by me
[2023-07-29] MEDS: LOVENOX 40 MG SC (17:40)
--- NOTE | 2023-07-29 18:15 | PTCARENOTE ---
Pt with elevated blood pressures throughout shift. aware. Pt followed by cardiology.
[2023-07-30 03:17] VITALS: BP 155/107
[2023-07-30 06:00] VITALS: BMI 27.4
[2023-07-30 06:05] LABS: Blood Urea Nitrogen 22 mg/dl (9-20); Calcium 9.3 mg/dl (8.4-10.2); Carbon Dioxide 25 mmol/L (22-30); Chloride 104 mmol/L (98-107); Estimated Creatinine Clearance 99 ml/min; Glucose 96 mg/dl (70-99); Potassium 3.7 mmol/L (3.5-5.1); Sodium 140 mmol/L (135-145); eGFR > 60.00
[2023-07-30 07:30] VITALS: BP 154/97
[2023-07-30] MEDS: LEXAPRO 20 MG PO (08:25)
[2023-07-30] MEDS: THERAGRAN 1 TABLET PO (08:26)
[2023-07-30] MEDS: NORVASC 10 MG PO (08:26)
[2023-07-30] MEDS: LOW STRENGTH ASPIRIN 81 MG PO (08:26)
[2023-07-30] MEDS: ENTRESTO 49 MG/51 MG 1 TAB PO ×2 (08:26→20:38)
[2023-07-30] MEDS: ALDACTONE 25 MG PO (08:26)
[2023-07-30] MEDS: LASIX 40 MG IV ×2 (08:26→17:56)
[2023-07-30 09:02] VITALS: BMI 27.4
--- NOTE | 2023-07-30 09:27 | W.PN.CD ---
Today's Communication / Plan
-
add coreg
one more day of IV lasix, then transition to PO tomorrow
Impression / Plan
-
Progressive dyspnea over 3-4 days, perhaps some orthopnea night prior to ER presentation CXR abnormal but raises possibility of interstitial lung disease and/or HF.. In ER and upon EMS arrive HTN was markedly elevated.
- defer pulmonary evaluation to hospitalist
- see below for HF
Acute HFPEF, new diagnosis
-echo 07/28: EF 55-60%, nl RV, no sig valve disease
- seems to be responding well to IV lasix: continue, with close monitoring of labs and tele
-transition to PO lasix tomorrow
-lasix will replace home med HCTZ
-aldactone added 07/27
-changed valsartan to entresto 07/28
- I provided him with copay card
-eventual SGLT2i: he wishes to defer this to outpatient setting given multiple med changes this admission
Very poorly controlled HTN
-reports side effects to metoprolol and clonidine previously
- Check betito/renins: pending
- Added Aldactone 07/27
- changed valsartan to entresto 07/28
-cont home amlodipine 10mg daily
-add coreg 6.25mg bid
CAD, cath several years ago 'small vessel 90%' => med rx
-ASA 81mg daily
[facility], brief SVT on tele
-no sxs
-adding coreg
Mixed hyperlipidemia
- Stopped his statin
- Knows he needs to go back on statin: to be addressed as outpatient
Extensive spine disease, prior surgery ([facility])
Left leg postphlebitic syndrome
- Prior left leg provoked DVT with chronic LLE edema
- u/s here: no current DVT
Disability since 2019 for back disease
9 yrs ago this weekend here at [facility] [place]
Subjective:
SOB is improving.
Physical Exam
Vital Signs/Labs
Vital Signs
Temp Pulse Resp BP Pulse Ox
97.5 F 76 18 154/97 98
07/30/23 07:30 07/30/23 07:30 07/30/23 07:30 07/30/23 07:30 07/30/23 07:30
07/29/23 07/30/23 07/31/23
06:59 06:59 06:59
Actual Weight 98.43 kg 96.672 kg
07/29/23 05:38
07/30/23 05:25
Triglycerides 87 mg/dl (10-149) 07/28/23 02:51
LDL Cholesterol, Calc 89 mg/dl 07/28/23 02:51
VLDL Cholesterol, Calc 17 mg/dl (0-30) 07/28/23 02:51
HDL Cholesterol 44 mg/dl 07/28/23 02:51
07/27/23 07/29/23
17:35 05:38
Oml-D-Caheplfgowz Pept 1150 602
LAB Results
07/27/23 07/27/23 07/28/23
17:35 21:33 02:51
Troponin I < 0.012 < 0.012 < 0.012
07/28/23
08:51
Troponin I < 0.012
Physical Exam
Constitutional: No acute distress and Comfortable
EENT: Moist mucous membranes
Cardiovascular: Rhythm & rate is regular, Pedal edema is absent, JVD pressure is normal and Systolic murmur absent
Respiratory: Respiratory effort normal, Lungs clear to auscul. and Wheeze Absent
GI: Soft, Distention absent and Flat
Neuro/Psych: AO x 3
Data Reviewed
-
Date of Service: July 30, 2023
EKG: Other (Tele: SR 80s, PAC's, brief SVT)
Echo: Report Reviewed by me
Labs: Labs Reviewed by me
[2023-07-30] MEDS: COREG 6.25 MG PO ×2 (09:59→20:37)
[2023-07-30 11:00] VITALS: BP 125/93
--- NOTE | 2023-07-30 11:04 | W.PN.HOSP.TC ---
Today's Communication/Plan
-
Continue to optimize blood pressure medication. Continue with IV Lasix for 1 more day.
DC in a.m. if stable.
Assessment / Plan
Assessment / Plan
Acute shortness of breath associated wheezing and dry cough-patient with bilateral lower extremity swelling. Mildly elevated BNP noted. Uncontrolled hypertension noted on admission as well. Chest x-ray suggestive of bibasilar opacities with
interstitial edema/bronchitis. No prior chest x-rays to compare for the chronicity. With rapid improvement with the breathing without any other treatments other than Lasix clinical concern is for heart failure. continue with Lasix.
Improved clinically. Chest x-ray repeated shows resolution of the findings which is suggestive of CHF. Echo With normal EF and no significant valvular abnormalities.
clinical picture suggestive of acute diastolic heart failure. Optimize blood pressure. Continue with medication per
cardiology.
No reactive airway disease -hold steroids or nebulizers.
Doubt clinically pneumonia-no fevers. Procalcitonin was normal. Patient is already improved without treatment with antibiotics. White count normalized with abx -suspect reactive.
Omaoxnptyhkj-abbbnassylbj-ahbcyrds with his home medication and Lasix. Hold hydrochlorothiazide.Med changes by cards noted
Full code
Anticipated Discharge: Within 24 hours
Subjective/Interval History
-
Date of Service: July 30, 2023
feeling improved with the breathing.
No chest pain.
No cough.
No fever.
Objective Data
-
Labs:
Laboratory Results
07/30/23
05:25
Sodium 140
Potassium 3.7
Chloride 104
Carbon Dioxide 25
BUN 22 H
Creatinine 0.9
Glucose 96
Calcium 9.3
Vital Signs:
Vital Signs
Temp Pulse Resp BP Pulse Ox
97.5 F 76 18 154/97 98
07/30/23 07:30 07/30/23 07:30 07/30/23 07:30 07/30/23 07:30 07/30/23 07:30
I&O
07/29/23 07/30/23 07/31/23
06:59 06:59 06:59
Intake Total 1380 / 1380 960 / 960
Balance 1380 / 1380 960 / 960
Review of Systems
-
Abdomen/GI: Denies Abdominal Pain, Nausea or Vomiting
Neuro: Denies Dizzy
Physical Exam
-
General: No Apparent Distress
HEENT: Moist Mucous Membranes
Respiratory: Clear to Auscultation and Non Labored Respirations; Negative Accessory Resp Muscle Use
Cardiac: Regular Rhythm and S1/S2
Neuro: AO x 3
Data Reviewed
-
Labs: Labs Reviewed by me
--- NOTE | 2023-07-30 11:29 | W.PN.UPDATE ---
Update Note
Progress Note Update
Called to see patient for atrial fibrillation, appears to be RVR. EKG ordered.
He denies CP, SOB, and palps but felt dizziness with onset.
Paroxysmal atrial fibrillation
-Rates elevated, start diltiazem 5mg/hour, follow telemetry
-Coreg 6.25mg BID started this morning
-Oral Anticoagulation: Eliquis 5mg BID
-[id number]: score at least 3 (Heart failure, HTN, Vascular disease)
[2023-07-30] MEDS: CARDIZEM 125 IV (13:30)
[2023-07-30] MEDS: ELIQUIS 5 MG PO ×2 (13:30→20:38)
--- NOTE | 2023-07-30 15:09 | PTCARENOTE ---
Pt noted to be in Afib on tele monitor, Cardiology made aware. EKG ordered and done showing A-fib with RVR. Cardizem drip ordered, Pt stated prior to starting drip feeling 'dizzy' Blood pressure taken 119/90 HR 115. Cardiology made aware of Pt
symptoms- OK to start Cardizem drip, needed for heart rate.
[2023-07-30 15:15] VITALS: BP 139/99
--- NOTE | 2023-07-30 15:42 | CM ---
Case management following fo d/c planning
Chart reviewed
Diuresing
Cards following
CM will follow for d/c needs
Plan - anticipate home no needs
[2023-07-30 19:30] VITALS: BP 133/96
--- NOTE | 2023-07-30 20:25 | PTCARENOTE ---
Patient appears to have converted to NSR. Heart rate 83. Patient on Cardizem gtt at 5mg/hr. BP 133/96 hr 83. EKG done and confirmed rhythm. Patient due to receive Coreg at 1999, No PO Cardizem ordered at this time. JULIETA Camara notified. Order to
hold Cardizem gtt at this time. Will monitor, care ongoing.
[2023-07-30 23:25] VITALS: BP 138/98
[2023-07-31 03:45] VITALS: BP 143/98
[2023-07-31 06:00] VITALS: BMI 27.1
[2023-07-31 06:32] LABS: Blood Urea Nitrogen 31 mg/dl (9-20); Calcium 9.4 mg/dl (8.4-10.2); Carbon Dioxide 22 mmol/L (22-30); Chloride 101 mmol/L (98-107); Estimated Creatinine Clearance 89 ml/min; Glucose 97 mg/dl (70-99); Potassium 3.9 mmol/L (3.5-5.1); Sodium 137 mmol/L (135-145); eGFR > 60.00
[2023-07-31 07:00] VITALS: BP 150/106
[2023-07-31] MEDS: ENTRESTO 49 MG/51 MG 1 TAB PO (07:58)
[2023-07-31] MEDS: ALDACTONE 25 MG PO (07:58)
[2023-07-31] MEDS: COREG 6.25 MG PO (07:58)
[2023-07-31] MEDS: LOW STRENGTH ASPIRIN 81 MG PO (07:58)
[2023-07-31] MEDS: ELIQUIS 5 MG PO (07:59)
[2023-07-31] MEDS: LASIX 40 MG PO (07:59)
[2023-07-31] MEDS: LEXAPRO 20 MG PO (07:59)
[2023-07-31] MEDS: THERAGRAN 1 TABLET PO (07:59)
[2023-07-31 09:32] LABS: Aldosterone, Serum 6.3 ng/dL; Aldosterone/Renin Activ Ratio 7.9 ratio (<=25.0); Renin Activity Results 0.8 ng/mL/hr
--- NOTE | 2023-07-31 09:57 | CM ---
Patient seen at bedside, Patient states that he is for discharge today and has a ride home. Patient confirmed no VN needs and completed IMM, signed form placed on chart with all questions answered. CM will continue to follow for discharge planning
needs.
Plan; home with no needs anticipated
--- NOTE | 2023-07-31 10:13 | W.PN.CD ---
Today's Communication / Plan
-
titrate coreg to 12.5mg BID
continue to monitor BP and monitor for recurrent afib
if rhythm remains stable, possible dischargein 24 hours
patient will renal profile next week and again in 3 weeks
Impression / Plan
-
Progressive dyspnea over 3-4 days, perhaps some orthopnea night prior to ER presentation CXR abnormal but raises possibility of interstitial lung disease and/or HF.. In ER and upon EMS arrive HTN was markedly elevated.
- defer pulmonary evaluation to hospitalist
- see below for HF
Acute HFPEF, new diagnosis
-echo 07/28: EF 55-60%, nl RV, no sig valve disease
- seems to be responding well to IV lasix: continue, with close monitoring of labs and tele
-transition to PO lasix tomorrow
-lasix will replace home med HCTZ
-aldactone added 07/27
-changed valsartan to entresto 07/28
- copay cardWas provided this admission
-eventual SGLT2i: he wishes to defer this to outpatient setting given multiple med changes this admission
Very poorly controlled HTN
- [id number]
-reports side effects to metoprolol and clonidine previously
- Check betito/renins: pending
- Added Aldactone 07/27
- changed valsartan to entresto 07/28
-cont home amlodipine 10mg daily
-titrate coreg
Paroxysmal atrial fibrillation New diagnosis 07/30/2023
-Spontaneous conversion while on IV diltiazem
-Coreg 6.25mg BID s-Titrate
-Oral Anticoagulation: Eliquis 5mg BID
-[id number]: score at least 3 (Heart failure, HTN, Vascular disease)
CAD, cath several years ago 'small vessel 90%' => med rx
-ASA 81mg daily
- Sees Dr. Braden of [facility]
PAC's, brief SVT on tele
-no sxs
-adding coreg
Mixed hyperlipidemia
- Stopped his statin
- Knows he needs to go back on statin: to be addressed as outpatient
Extensive spine disease, prior surgery ([facility])
Left leg postphlebitic syndrome
- Prior left leg provoked DVT with chronic LLE edema
- u/s here: no current DVT
Disability since 2019 for back disease
9 yrs ago this weekend here at [facility] [place]
Subjective:
SOB is improving.
Physical Exam
Vital Signs/Labs
Vital Signs
Temp Pulse Resp BP Pulse Ox
97.6 F 73 16 150/106 96
07/31/23 07:00 07/31/23 07:58 07/31/23 07:00 07/31/23 07:58 07/31/23 07:00
07/30/23 07/31/23 08/01/23
06:59 06:59 06:59
Actual Weight 96.672 kg 95.844 kg
07/29/23 05:38
07/31/23 05:19
Triglycerides 87 mg/dl (10-149) 07/28/23 02:51
LDL Cholesterol, Calc 89 mg/dl 07/28/23 02:51
VLDL Cholesterol, Calc 17 mg/dl (0-30) 07/28/23 02:51
HDL Cholesterol 44 mg/dl 07/28/23 02:51
07/27/23 07/29/23
17:35 05:38
Adm-A-Lewpfdhkluo Pept 1150 602
Physical Exam
Constitutional: No acute distress
Cardiovascular: Rhythm & rate is regular
Respiratory: Respiratory effort normal
GI: Soft
Neuro/Psych: Alert
Data Reviewed
-
Date of Service: July 31, 2023
Medical Decision Making: Reviewed Test Results
EKG: Report Reviewed by me
X-Ray/CT/US/MRI/NUC/PET: Discussed with Physician
Medical Tests (PFT, Pathology etc): Report Reviewed by me
[2023-07-31 11:00] VITALS: BP 145/100
[2023-07-31 11:29] VITALS: BP 145/100
--- NOTE | 2023-07-31 14:53 | W.PN.HOSP.TC ---
Today's Communication/Plan
-
DC planning
Assessment / Plan
Assessment / Plan
Acute shortness of breath associated wheezing and dry cough-patient with bilateral lower extremity swelling. Mildly elevated BNP noted. Uncontrolled hypertension noted on admission as well. Chest x-ray suggestive of bibasilar opacities with
interstitial edema/bronchitis. No prior chest x-rays to compare for the chronicity. With rapid improvement with the breathing without any other treatments other than Lasix clinical concern is for heart failure. continue with Lasix.
Improved clinically. Chest x-ray repeated shows resolution of the findings which is suggestive of CHF. Echo With normal EF and no significant valvular abnormalities.
clinical picture suggestive of acute diastolic heart failure. Optimize blood pressure. Continue with medication per cardiology.
No reactive airway disease -hold steroids or nebulizers.
Doubt clinically pneumonia-no fevers. Procalcitonin was normal. Patient is already improved without treatment with antibiotics. White count normalized with abx -suspect reactive.
Eldeerqoanob-gwuokcerxigl-ftjmksbk with his home medication and Lasix. Hold hydrochlorothiazide.Med changes by cards noted
New onset of afib -rate controlled . Started on Eliquis and BB by cards
Full code
DC home when ok from cardiology
Anticipated Discharge: Within 24 hours
Subjective/Interval History
-
Date of Service: July 31, 2023
Went into A-fib yesterday -was asymptomatic.
Denies any chest pain or shortness of breath.
Objective Data
-
Labs:
Laboratory Results
07/31/23
05:19
Sodium 137
Potassium 3.9
Chloride 101
Carbon Dioxide 22
BUN 31 H
Creatinine 1.0
Glucose 97
Calcium 9.4
Vital Signs:
Vital Signs
Temp Pulse Resp BP Pulse Ox
97.5 F 76 16 145/100 97
07/31/23 11:00 07/31/23 11:00 07/31/23 11:00 07/31/23 11:00 07/31/23 11:00
I&O
07/30/23 07/31/23 08/01/23
06:59 06:59 06:59
Intake Total 960 / 960 1070 / 1070
Balance 960 / 960 1070 / 1070
Review of Systems
-
Constitutional: Denies Fever
EENT: Denies Sore Throat
Respiratory: Denies Cough
Abdomen/GI: Denies Abdominal Pain, Nausea or Vomiting
Neuro: Denies Dizzy
Physical Exam
-
General: No Apparent Distress
HEENT: Moist Mucous Membranes
Respiratory: Clear to Auscultation
Cardiac: S1/S2 and Irregular Rhythm; Negative Tachycardic
Neuro: AO x 3
Data Reviewed
-
Labs: Labs Reviewed by me
[2023-07-31 15:00] VITALS: BP 141/90
--- NOTE | 2023-07-31 15:54 | W.DS.TRANS ---
DC Summary - Client Experience Specialist
-
Discharge Instructions:
Sleep Apnea Risk Intermediate
Discharge Diagnosis/Procedures New CHF with preserved EF; New paroxysmal Afib
Diet 2 Gram Sodium
Activity As tolerated
Driving Restrictions As prior to admission
Bathing Restrictions None
Blood Work BMP blood work in a week -arrange through your
PCP
Specialty Instructions Weigh Daily
Instructions:
Stand-Alone Forms:
Changes to Home Medications: Yes
Discharge Medications:
DC Medications w/original date entered in [employer]
escitalopram oxalate 20 mg tablet (Lexapro) 20 mg PO DAILY Depression 07/27/23
therapeutic multivitamin 1 tab PO DAILY Supplement 07/27/23
apixaban 5 mg tablet (Eliquis) 5 mg PO BID #60 tabs 07/31/23
aspirin 81 mg chewable tablet (Children's Aspirin) 81 mg PO DAILY #30 tabs 07/31/23
carvedilol 6.25 mg tablet 6.25 mg PO BID #60 tabs 07/31/23
furosemide 40 mg tablet 40 mg PO DAILY #30 tabs 07/31/23
sacubitril 49 mg-valsartan 51 mg tablet (Entresto) 1 tab PO BID #60 tabs 07/31/23
spironolactone 25 mg tablet 25 mg PO DAILY #30 tabs 07/31/23
Home Medication Changes
New medication-spironolactone, Entresto, Lasix, Coreg, aspirin, Eliquis.
DC medications -HCTZ and amlodipine
Pending Results: No
--- NOTE | 2023-07-31 16:06 | W.DCSUMMARY ---
Discharge Summary
Discharge Data
Date of Admission: 07/27/23
Date of Discharge: 07/31/23
-
Pending Results: Yes
Additional Pending Results:
Renin/aldosterone levels
Hospital Course
Primary diagnosis:
New onset of acute heart failure with preserved EF
Uncontrolled hypertension
New paroxysmal atrial fibrillation
Secondary diagnosis:
Essential hypertension
Hospital course:
Patient presented with acute shortness of breath in the setting of uncontrolled hypertension. Clinically, radiologically and with elevated BNP he was also found to be in acute heart failure. His echocardiogram showed normal EF with no significant
valve abnormality. It was felt that probably hypertension related heart failure. His hydrochlorothiazide was stopped and Lasix. He had a good response to IV Lasix. His weight came down from 236 pounds to 211 pounds.
His amlodipine was discontinued and his valsartan was switched to Entresto. Coreg was also introduced.
He had a brief episode of paroxysmal atrial fibrillation ,with a [id number] score of 3 he was started on Eliquis.
He will follow with cardiology upon discharge ;need a repeat BMP in a week.
Consultants on board:
Cardiology-Lasha Bustillos
Discharge Plan
-
Patient Disposition: Home (Routine Discharge)
Discharge Diagnosis/Procedures: New CHF with preserved EF; New paroxysmal Afib
Diet: 2 Gram Sodium
Activity: As tolerated
Driving Restrictions: As prior to admission
Bathing Restrictions: None
Blood Work: BMP blood work in a week -arrange through your PCP
Specialty Instructions: Weigh Daily- Call MD for wt gain/loss 3 lbs overnight/5 lbs in 1 week
Referrals:
Ramón Jeff DO [Family Provider] - in less than 1 week
Lexa Braden MD [Non-Admitting Privileges] - in one week
Additional Discharge Medication Instructions: Stop HCTZ and amlodipine
No Aleve with Eliquis.
Prescriptions:
New
carvedilol 6.25 mg Tablet
6.25 mg PO BID Qty: 60 0RF
spironolactone 25 mg Tablet
25 mg PO DAILY Qty: 30 0RF
furosemide 40 mg Tablet
40 mg PO DAILY Qty: 30 0RF
Eliquis 5 mg Tablet
5 mg PO BID Qty: 60 0RF
Entresto 49-51 mg Tablet
1 tab PO BID Qty: 60 0RF
Continued
escitalopram oxalate [Lexapro] 20 mg Tablet
20 mg PO DAILY
therapeutic multivitamin Tablet
1 tab PO DAILY
Discontinued
amlodipine [Norvasc] 10 mg Tablet
10 mg PO DAILY
valsartan 320 mg Tablet
320 mg PO DAILY
naproxen sodium [Aleve] 220 mg Tablet
660 mg PO BID
hydrochlorothiazide 50 mg Tablet
50 mg PO Q OTHER DAY
Discharge Date and Time
Print Language: [place]
== END 2023-07-31 17:41 | disposition home or self-care (01) | DRG 291 ==
LOC: 3 WEST ACU 19:48
PROVIDERS: Physician Assistant; Student in an Organized Health Care Education/Training Program; ADMITTING PHYSICIAN Internal Medicine; ATTENDING PHYSICIAN Internal Medicine; CONSULT PHYSICIAN Internal Medicine Cardiovascular Disease; EMERGENCY PHYSICIAN Emergency Medicine; FAMILY PHYSICIAN Family Medicine
DX: I11.0 Hypertensive heart disease with heart failure (principal); I50.33 Acute on chronic diastolic (congestive) heart failure; R09.02 Hypoxemia; F32.A Depression, unspecified; I48.0 Paroxysmal atrial fibrillation; I25.10 Atherosclerotic heart disease of native coronary artery without angina pectoris; E78.2 Mixed hyperlipidemia; I87.002 Postthrombotic syndrome without complications of left lower extremity; Z82.49 Family history of ischemic heart disease and other diseases of the circulatory system; Z11.52 Encounter for screening for COVID-19; Z86.718 Personal history of other venous thrombosis and embolism
CPT/HCPCS: 71045; 71046; 80048; 80053; 80061; 82088; 82248; 83880; 84145; 84244; 84484; 85025; 85027; 86803; 87040; 87502; 87811; 93005; 93306; 93971; 96374; 96375; 99285

== ENCOUNTER 2024-10-13 08:48 | Emergency (ER) | payer MEDICARE, SELFPAY ==
[2024-10-13 08:52] VITALS: BP 179/90
[2024-10-13 08:54] VITALS: BP 170/90
--- NOTE | 2024-10-13 11:21 | ED.GENMED ---
History of Present Illness
General
Chief Complaint: Back Pain
Source: patient
Exam Limitations: none
Time Seen by Provider: 10/13/24 10:26
Nursing documentation reviewed up to this point in time: agreed with
History of Present Illness
History of Present Illness:
Patient is a 64-year-old male with chronic back issues, previous spinal fusion done at [facility], A-fib CHF hypertension presents to the ER for evaluation of back pain. Patient started with right lower back pain on Friday 4 days ago which radiates
down to his right leg. He denies any actual injury. Pain has been worsening. He has been taking Aleve with no relief. He denies any continence bowel bladder. Denies any leg weakness. Denies any saddle paresthesia. His last epidural was 3
years ago.
He denies any other symptoms denies any chest pain shortness of breath. He is on Eliquis for A-fib history
Past History
Past History
ED Past Medical History: HTN
Social History
Tobacco: Non-smoker
Personal:
Phy Exam
General Physical Exam
General Presentation: no apparent distress
General age: appears stated age
General Skin: warm and dry
General Habitus: normal
General Mental: alert
General Hydration: appears well hydrated
Neurological Exam
Neurological Exam: alert, oriented x3, no motor deficits, no sensory deficits and other (Normal distal sensation normal dorsiflexion of her flexion)
Musculoskeletal Exam
Musculoskeletal Exam: other (Tenderness of right paralumbar region no midline tenderness normal inspection of back)
Skin Exam
Skin Exam: normal color and warm/dry
Psychiatric Exam
Psychiatric Exam: normal mood/affect
Course
Orders/Labs/Results
Orders:
Orders
10/13/24 11:19
diazePAM [Valium Injection] 5 mg IM NOW STA
10/13/24 11:20
Acetaminophen [Tylenol] 1,000 mg PO NOW STA
Dexamethasone Sod Phosphate [Decadron] 10 mg IM NOW STA
Lidocaine [Lidocaine 4% Patch] 1 patch TOPICAL NOW STA
Apply Lidocaine patch(s) to:: right lower lumbar region
10/13/24 12:55
HYDROmorphone [Dilaudid] 1 mg IM NOW STA
Vital Signs
Initial and Last Documented VS:
Initial Vital Signs
Temp Pulse Resp BP Pulse Ox
98.5 F 69 18 179/90 100
10/13/24 08:52 10/13/24 08:52 10/13/24 08:52 10/13/24 08:52 10/13/24 08:52
Last Documented Vital Signs
Temp Pulse Resp BP Pulse Ox
98.5 F 69 24 170/90 100
10/13/24 08:54 10/13/24 08:54 10/13/24 08:54 10/13/24 08:54 10/13/24 11:23
MDM/Problems Addressed
Differential Diagnosis Includes:
Not limited to muscle pain, lumbar strain, sciatica
MDM/Problems Addressed:
Symptoms are consistent with muscle pain. Patient does have a history of chronic back issues years ago and had epidurals years ago. He had no recent trauma. Pain is in his right lower back rating to his right leg. He has no concerning symptoms
consistent with cauda equina/infection. Patient was medicated with Valium steroids Tylenol lidocaine patch feeling better. I sat him up and on reevaluation he was able to walk and felt better is slightly increased his symptoms however he does feel
like he is can to be able to home. Will give 1 dose of IM Dilaudid to bring his pain down and then plan to discharge with steroids and muscle relaxer with close outpatient follow-up with orthopedic doctor
Reevaluation patient feels that he is still has a lot of pain will insert IV give 1 more dose of IV Dilaudid and plan to reevaluate
Chronic conditions affecting care:
Chronic back issues on Eliquis
*Pulse Oximetry
SaO2: 100
Oxygen Mode of Delivery: Room air
Patient hypoxic: no
*Critical Care Note
Total Time (30-74mins, 75-104mins- exclusive of procedures): Not Applicable
ED Attending Note
-
Portions of this chart may have been created with voice recognition software.� Occasional wrong word or��sound alike� substitutions may have occurred due to the inherent limitations of voice recognition software.
Discharge Plan
Departure
Patient Disposition: Home (Routine Discharge)
Date of Disposition: 10/13/24
Time of Disposition: 12:57
Patient with high blood pressure during this ER visit?: Yes
Condition: Fair
Covid-19: Not Applicable
Discharge Problem:
Low back pain, Sciatica
Instructions: Low Back Pain (DC), Sciatica (DC)
Prescriptions:
New
cyclobenzaprine 10 mg tablet
10 mg PO TID PRN (Reason: muscle spasm) Qty: 10 0RF
prednisone 10 mg Tablet
See Rx Instructions .ROUTE .COMPLEX Qty: 30 0RF
Rx Instructions:
Take By Mouth:
40 mg daily x3 days, 30 mg daily x3 days,
20 mg daily x3 days, 10 mg daily x3 days.
lidocaine 5 % adhesive patch,medicated
1 patch topical DAILY PRN (Reason: pain) Qty: 15 0RF
Rx Instructions:
Remove after 12 hours
No Action
escitalopram oxalate [Lexapro] 20 mg Tablet
20 mg PO DAILY
therapeutic multivitamin Tablet
1 tab PO DAILY
carvedilol 6.25 mg Tablet
6.25 mg PO BID Qty: 60 0RF
spironolactone 25 mg Tablet
25 mg PO DAILY Qty: 30 0RF
furosemide 40 mg Tablet
40 mg PO DAILY Qty: 30 0RF
Eliquis 5 mg Tablet
5 mg PO BID Qty: 60 0RF
Entresto 49-51 mg Tablet
1 tab PO BID Qty: 60 0RF
Referrals:
Ramón Jeff DO [Family Provider, Family Practice]
Activity Restrictions/Additional Instructions:
As discussed a prescription for steroids was sent to pharmacy take as directed starting tomorrow. You may apply lidocaine patch which was also sent to pharmacy daily. Remove after 12 hours. A prescription for Flexeril was sent as well. Please
take 1 every 8 hours only as needed. This will cause drowsiness no driving or drinking alcohol taking this medication. You may alternate between Tylenol as well however avoid NSAIDs/ibuprofen Aleve because you are on Eliquis and you are
prescribes steroids.
You may do gentle walking but avoid bending over or lifting. Follow-up with your family doctor as well as orthopedic doctor in the next 2 days return if any worsening of symptoms.
Interventions
Interventions:
*General Assessment Last Done: 10/13/24 11:28
*Neglect/Abuse Screening Last Done: 10/13/24 11:28
ED-Musculoskeletal Assessment Last Done: 10/13/24 11:28
Discharge Date and Time
Print Language: CITIZ[place]
[2024-10-13] MEDS: DECADRON 10 MG IM (11:44)
[2024-10-13] MEDS: LIDOCAINE 4% PATCH 1 PATCH TOPICAL (11:44)
[2024-10-13] MEDS: VALIUM INJECTION 5 MG IM (11:44)
[2024-10-13] MEDS: TYLENOL 1000 MG PO (11:45)
[2024-10-13] MEDS: DILAUDID 1 MG IM (13:24)
[2024-10-13] MEDS: DILAUDID 1 MG IV (14:26)
== END 2024-10-13 15:23 | disposition home or self-care (01) ==
LOC: EMR 08:48
PROVIDERS: EMERGENCY PHYSICIAN Student in an Organized Health Care Education/Training Program; FAMILY PHYSICIAN Family Medicine
DX: M54.40 Lumbago with sciatica, unspecified side (principal); I11.0 Hypertensive heart disease with heart failure; I50.9 Heart failure, unspecified; I48.91 Unspecified atrial fibrillation; Z79.01 Long term (current) use of anticoagulants; Z98.1 Arthrodesis status
CPT/HCPCS: 99282; 96374; 96372